=== PATIENT | male | born 1965 | race African-American/Black ===

== ENCOUNTER 2018-11-26 13:46 | Emergency (ER) | payer OTHER ==
[~2018-11-26] VITALS: Ht 170.2 cm; Wt 76.0 kg
[~2018-11-26 13:46] MED LIST: IBUP-2030 PO; TAMS-11 PO; ZOLP6.252 PO
[2018-11-26] MEDS ORDERED: OLANZAPINE 10 MG/VIAL IM STA (14:12)
[2018-11-26] MEDS ORDERED: SODIUM CHLORIDE 0.9% 1,000 ML IV ONE (14:12)
[2018-11-26] MEDS ORDERED: ONDANSETRON HCL 4MG/2ML INJ IV STA (14:12)
[2018-11-26] MEDS ORDERED: LORAZEPAM 2MG/ML CPJ IM STA (14:12)
[2018-11-26 16:34] LABS: BASOPHILS % 0.3 % (0.0-2.0); EOSINOPHILS % 1.1 % (0.0-5.0); HEMATOCRIT. 44.3 % (42.0-52.0); HEMOGLOBIN. 14.8 g/dL (14.0-18.0); LYMPHOCYTES % 34.2 % (20.0-50.0); MEAN CORPUSCULAR HEMOGLOBIN 29.6 pg (28.0-32.0); MEAN CORPUSCULAR VOLUME 88.4 fL (80.0-94.0); MEAN PLATELET VOLUME 8.4 fl (7.4-10.4); MONOCYTES % 6.2 % (2.0-8.0); NEUTROPHILS % 58.2 % (40.0-76.0); PLATELET 248 x1000/uL (130-400); RED BLOOD CELL COUNT 5.01 mill/uL (4.7-6.1); RED CELL DISTRIBUTION WIDTH 14.3 % (11.6-14.6)
[2018-11-26 16:38] LABS: CHLORIDE 108 mEq/L (98-107)
[2018-11-26 16:40] LABS: PROTHROMBIN TIME 10.5 sec (9.1-11.1)
[2018-11-26 16:42] LABS: ETHANOL BLOOD < 10 mg/dL
[2018-11-26] MEDS ORDERED: KCL 20MEQ/100ML PREMIX 100 ML IV ONE (16:45)
[2018-11-26 16:46] LABS: CREATINE KINASE 445 IU/L (39-308)
[2018-11-26 17:41] LABS: PHOSPHORUS 3.6 mg/dL (2.5-4.9)
[2018-11-26 18:38] LABS: CLARITY URINE CLEAR (CLEAR); COLOR URINE YELLOW (YELLOW); KETONES URINE NEGATIVE (NEGATIVE); LEUKOCYTE ESTERASE URINE NEGATIVE (NEGATIVE); NITRITE URINE NEGATIVE (NEGATIVE); OCCULT BLOOD URINE NEGATIVE (NEGATIVE); PH URINE 6.5 (4.5-8.0); PROTEIN URINE NEGATIVE (NEGATIVE); SPECIFIC GRAVITY URINE 1.001 (1.005-1.030); UROBILINOGEN URINE 0.2 E.U./dL (0.2-1.0)
[2018-11-26 19:04] LABS: *AMPHETAMINES SCREEN URINE NEGATIVE (NEGATIVE); *BARBITURATES SCREEN URINE NEGATIVE (NEGATIVE); *BENZODIAZEPINES SCREEN URINE PRESUMTIVE POSITIVE (NEGATIVE); *COCAINE SCREEN URINE PRESUMTIVE POSITIVE (NEGATIVE)
[2018-11-26 19:05] LABS: CANNABINOID URINE SCREEN NEGATIVE (NEGATIVE); METHADONE URINE SCREEN PRESUMTIVE POSITIVE (NEGATIVE); OPIATES URINE SCREEN NEGATIVE (NEGATIVE); PHENCYCLIDINE URINE SCREEN NEGATIVE (NEGATIVE)
[2018-11-27 07:11] VITALS: BP 117/68
== END 2018-11-27 07:53 | disposition home or self-care (01) ==
LOC: ER 13:51
DX: T40.5X1A Poisoning by cocaine, accidental (unintentional), initial encounter (principal); G92 Toxic encephalopathy; F11.20 Opioid dependence, uncomplicated; I10 Essential (primary) hypertension; R45.1 Restlessness and agitation; Y92.89 Other specified places as the place of occurrence of the external cause
CPT/HCPCS: 36415; 80053; 80305; 80307; 80329; 81003; 82550; 82962; 83690; 83735; 84100; 84443; 84484; 85025; 85610; 93005; 96361; 96372; 96374; 99284; G0482; J2060; J2405; J3480; J3490; J7030

== ENCOUNTER 2022-08-13 03:46 | Emergency (ER) | payer OTHER ==
[~2022-08-13] VITALS: Ht 177.8 cm; Wt 73.0 kg
[2022-08-13 05:27] LABS: CHLORIDE 104 mEq/L (98-107)
[2022-08-13 05:44] LABS: CREATINE KINASE 849 IU/L (39-308); ETHANOL BLOOD < 10 mg/dL
[2022-08-13 05:47] LABS: BASOPHILS % 0.6 % (0.0-2.0); EOSINOPHILS % 0.5 % (0.0-5.0); HEMATOCRIT. 45.7 % (42.0-52.0); HEMOGLOBIN. 14.9 g/dL (14.0-18.0); LYMPHOCYTES % 23.7 % (20.0-50.0); MEAN CORPUSCULAR HEMOGLOBIN 29.4 pg (28.0-32.0); MEAN CORPUSCULAR VOLUME 90.1 fL (80.0-94.0); MEAN PLATELET VOLUME 8.1 fl (7.4-10.4); MONOCYTES % 5.3 % (2.0-8.0); NEUTROPHILS % 69.9 % (40.0-76.0); PLATELET 230 x1000/uL (130-400); RED BLOOD CELL COUNT 5.08 mill/uL (4.7-6.1); RED CELL DISTRIBUTION WIDTH 14.8 % (11.6-14.6)
[2022-08-13] MEDS ORDERED: LORAZEPAM 2MG/ML CPJ IM STA (06:36)
[2022-08-13] MEDS ORDERED: DIPHENHYDRAMINE 50MG/ML VIAL IM STA (06:36)
[2022-08-13] MEDS ORDERED: OLANZAPINE 10 MG/VIAL IM ONE (06:45)
[2022-08-13 07:56] VITALS: BP 106/47
== END 2022-08-13 10:18 | disposition short-term general hospital (02) ==
LOC: ER 03:46
DX: G93.40 Encephalopathy, unspecified (principal); F91.8 Other conduct disorders; Z20.822 Contact with and (suspected) exposure to COVID-19; F11.90 Opioid use, unspecified, uncomplicated; I10 Essential (primary) hypertension
CPT/HCPCS: 36415; 70450; 71045; 80053; 80307; 80320; 80329; 82140; 82550; 82962; 84443; 84484; 85025; 87426; 93005; 96372; 99285; C9803; J1200; J2060; J3490; G0480